=== PATIENT | male | born 1940 | race Caucasian/White ===

== ENCOUNTER 2020-10-30 22:21 | Emergency (ER) | payer MEDICARE, BC ==
[~2020-10-30] VITALS: Ht 180.3 cm; Wt 93.0 kg
--- NOTE | 2020-10-30 23:00 | NUR ---
BIBWIFE FROM HOME TO ER BED 6. AAOX4. NOT IN RESP DISTRESS, BREATHING EVEN AND UNLABORED. AMBULATORY. CAME IN FOR FEELING FATIGUED D/T FRONTAL HEAD TRAUMA S/P TRIPPED AND FELL ON THE SIDE WALK. PT IS ON ASPIRIN. NO NEURO DEFIT NOTED. WAS AT THE BEDSIDE FOR EVAL. ORDERS RECEIVED, NOTED AND CARRIED OUT. PT TO CT IN [facility]
--- NOTE | 2020-10-30 23:10 | NUR ---
PT RETURNED FROM CT
[2020-10-30 23:53] VITALS: BP 139/70
--- NOTE | 2020-10-30 23:53 | NUR ---
Patient discharged to home in stable condition. Written and verbal after care instructions given. Patient verbalizes understanding of instruction.
== END 2020-10-30 23:54 | disposition home or self-care (01) ==
LOC: ER 22:35
DX: S09.8XXA Other specified injuries of head, initial encounter (principal); R51.9 Headache, unspecified; E11.9 Type 2 diabetes mellitus without complications; I10 Essential (primary) hypertension; E78.00 Pure hypercholesterolemia, unspecified; E78.5 Hyperlipidemia, unspecified; Z79.82 Long term (current) use of aspirin; Z88.5 Allergy status to narcotic agent; W01.198A Fall on same level from slipping, tripping and stumbling with subsequent striking against other object, initial encounter; Y93.89 Activity, other specified; Y92.89 Other specified places as the place of occurrence of the external cause; Y99.8 Other external cause status
CPT/HCPCS: 70450-TC

== ENCOUNTER 2021-09-09 16:42 | Inpatient (IN) | payer MEDICARE, BC ==
[~2021-09-09] VITALS: Ht 181.6 cm; Wt 84.8 kg
--- NOTE | 2021-09-09 16:46 | NUR ---
PT IVONNE FROM HOME, AAOX4 STATES WAS HAVING CHEST PAIN YESTERDAY THAT HE TOOK NITRO AND RESOLVES. THIS MORNING STARTED HAVING CHEST PAIN AGAIN AND DID RESOLVE ON ITS OWN. PT CAME IN CHEST PAIN FREE. 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 GOWNED AND PLACED ON MONITOR. AWAITING MD CALIX.
--- NOTE | 2021-09-09 16:50 | NUR ---
DR IBRAHIM AT BEDSIDE FOR EVAL.
[2021-09-09] MEDS ORDERED: DAPA10TA PO (17:06)
[2021-09-09] MEDS ORDERED: RANO10005 PO (17:06)
[2021-09-09] MEDS ORDERED: LOSA1TAB36 PO (17:06)
[2021-09-09] MEDS ORDERED: LAMO200T10 PO (17:06)
[2021-09-09] MEDS ORDERED: ESOM40CA52 PO (17:06)
[2021-09-09] MEDS ORDERED: RISP0.2515 PO (17:06)
[2021-09-09] MEDS ORDERED: MYRBETRIQ PO (17:06)
--- NOTE | 2021-09-09 17:22 | NUR ---
PT REFUSING IV START AT THIS TIME STATES DEHYDRATED AND WOULD LIKE WATER AND 15 MINUTES BEFORE IV START.
--- NOTE | 2021-09-09 17:43 | NUR ---
IV LINE STARTED BLOOD DRAWN AND SENT TO LAB.
--- NOTE | 2021-09-09 17:46 | NUR ---
RADIOLOGY AT BEDSIDE FOR CHEST XRAY.
[2021-09-09] MEDS ORDERED: METO25TA4 PO (18:11)
[2021-09-09] MEDS ORDERED: AMLO10TA4 PO (18:11)
[2021-09-09] MEDS ORDERED: GABA600T PO (18:11)
[2021-09-09] MEDS ORDERED: ATOR80TA PO (18:11)
[2021-09-09] MEDS ORDERED: MEMA10TA PO (18:11)
[2021-09-09] MEDS ORDERED: FERR325T23 PO (18:11)
[2021-09-09] MEDS ORDERED: METF-442 PO (18:11)
[2021-09-09] MEDS ORDERED: QUET25TA PO (18:11)
[2021-09-09] MEDS ORDERED: ASPI-1169 PO (18:11)
[2021-09-09 18:19] LABS: BASOPHILS % (AUTO) 0.5 % (0.0-2.0); EOSINOPHILS % (AUTO) 2.7 % (0.0-6.0); HEMATOCRIT 45 % (39-51); HEMOGLOBIN 15.2 g/dL (13.5-17.5); LYMPHOCYTES # (AUTO) 1.7 K/uL (0.8-4.8); LYMPHOCYTES % (AUTO) 28.5 % (20.0-44.0); MEAN CORPUSCULAR HGB CONC 34 g/dl (31.0-36.0); MEAN CORPUSCULAR VOLUME 94 fL (80-96); MONOCYTES # (AUTO) 0.5 K/uL (0.1-1.30); MONOCYTES % (AUTO) 8.8 % (2.0-12.0); NEUTROPHILS # (AUTO) 3.4 K/uL (1.8-8.9); NEUTROPHILS % (AUTO) 59.5 % (43.0-81.0); PLATELET COUNT (AUTO) 231 K/uL (150-450); WHITE BLOOD COUNT (AUTO) 5.8 K/uL (4.3-11.0)
--- NOTE | 2021-09-09 19:16 | NUR ---
REPORT GIVEN TO PATY DE LEON FOR PHILIP.
--- NOTE | 2021-09-09 20:31 | NUR ---
BED 314-1
[2021-09-09 20:40] LABS: CALCIUM, SERUM 9.6 mg/dL (8.5-10.1); CARBON DIOXIDE 27 mmol/L (21-32); CHLORIDE 100 mmol/L (98-107); CREATININE 1.3 mg/dL (0.6-1.3); GLUCOSE 91 mg/dL (74-106); POTASSIUM 3.9 mmol/L (3.5-5.1); SODIUM SERUM 137 mmol/L (136-145); UREA NITROGEN, BLOOD 22 mg/dL (7-18)
[2021-09-09] MEDS ORDERED: ACETAMINOPHEN 325 MG TABLET PO PRN (21:00)
[2021-09-09] MEDS ORDERED: ONDANSETRON HCL/PF 4 MG/2 ML VIAL IVP PRN (21:00)
[2021-09-09] MEDS ORDERED: NITROGLYCERIN PACKET 1 GM PACKET TD PRN (21:00)
[2021-09-09] MEDS ORDERED: NITROGLYCERIN 0.4 MG/TAB BOTTLE SL PRN (21:00)
[2021-09-09] MEDS ORDERED: MORPHINE SULFATE INJ 2 MG/ML DISP.SYRIN IV PRN (21:00)
[2021-09-09] MEDS ORDERED: MAG HYDROX/AL HYDROX/SIMETH 30 ML UDC PO PRN (21:00)
[2021-09-09] MEDS ORDERED: DOCUSATE SODIUM 100 MG CAPSULE PO PRN (21:00)
--- NOTE | 2021-09-09 21:22 | NUR ---
US TECH AT PT'S BEDSIDE FOR ECHOCARDIOGRAM
--- NOTE | 2021-09-09 21:28 | NUR ---
REPORT GIVEN TO HALEY LAU
[2021-09-09 21:45] VITALS: BP 142/69
--- NOTE | 2021-09-09 21:45 | NUR ---
SUPERVISOR SECURITIES VAULT RECEIVING TRANSFER NOTE REPORT GIVEN TO ME BY [employer] FIRE SPECIALIST. PATIENT RECEIVED FROM ER BY CHARLES. A/OX4. NO S/S OF DISTRESS, BREATHING SYMMETRICALLY ON ROOM AIR. TELE MONITOR REVEALS SR 92. RFA #20G SL. SKIN INTACT. NO COMPLAINTS OF PAIN AT THIS TIME. PATIENT'S BELONGINGS ACCOUNTED FOR AND LOGGED INTO CHART. PATIENT WAS ORIENTED TO THE UNIT INCLUDING USE AND PURPOSE OF CALL-SIFUENTES. PATIENT'S VS STABLE: 142/69, HR 83, T 97.7, R 18. SAFETY MEASURES IN PLACE: BED AT LOWEST POSITION, RAILS UP X2, CALL SIFUENTES WITHIN REACH. WILL CONTINUE TO MONITOR PATIENT.
--- NOTE | 2021-09-09 21:47 | NUR ---
PT TRANSFERRED UNDER ACLS
[2021-09-09] MEDS ORDERED: risperiDONE 0.25 MG TABLET PO SCH (22:00)
--- NOTE | 2021-09-09 22:48 | NUR ---
RN NOTE PATIENT IS REFUSING TO TAKE ALL MEDS UNTIL HE CAN GET CLARIFICATION REGARDING ONE MEDICATION, HIS RISPERIDONE, FROM THE MD. I WILL BE CONTACTING THE ON-CALL TO FOLLOW-UP. WILL CONTINUE TO MONITOR.
--- NOTE | 2021-09-10 00:38 | NUR ---
RN NOTE PATIENT HAS BECOME PROGRESSIVELY UNRULY. HE CONTINUES TO ASK FOR HIS MEDS, BUT REFUSES TO TAKE THEM UNLESS THE MEDS ARE HE DESIRES THEM TO BE WHICH IS DIFFERENT FROM WHAT IS ORDERED. DR. BRIDGES, THE ON-CALL MD, WAS NOTIFIED. PER DR. BRIDGES PATIENT NEEDS TO WAIT UNTIL THE MORNING TO DISCUSS WITH HIS ATTENDING MD (DR. DARBY) AND THE PHARMACY TO RECONCILE THE ISSUE. PATIENT'S MEDICATIONS WERE ALREADY RECONCILED PRIOR TO ARRIVAL ON UNIT, 3W. CHARGE NURSE MADE AWARE OF THE ENTIRE SITUATION. I HAVE REINFORCED TO PATIENT THE SCOPE AND PRACTICE OF MY BEING AN RN OPPOSED TO BEING AN MD, BUT THE PATIENT STILL REQUESTS THAT I GIVE HIM HIS MEDS HE SO DESIRES. I HAVE ALSO TRIED REASONING WITH THE PATIENT THAT HE CAN STILL TAKE THE EVENING MEDS HE DOES AGREE WITH, BUT EVEN IN VERBALIZING HIS WANTING TO TAKE THOSE MEDS HE REFUSES BECAUSE ALL HIS MEDS NEED TO BE GIVEN TO HIM AT ONCE. HE TOLD ME HE WANTED THE "FUCKING DOCTOR RIGHT NOW!" AND STATED THAT WE "DON'T WANT TO SEE [HIM] TURN BIPOLAR"
[2021-09-10 00:46] VITALS: BP 148/88
[2021-09-10] MEDS ORDERED: DEXTROSE 50%-WATER 50 ML DISP.SYRIN IV PRN (01:30)
[2021-09-10] MEDS ORDERED: INSULIN REGULAR, HUMAN 100 UNIT/ML 3 ML VIAL SQ PRN (01:30)
[2021-09-10] MEDS ORDERED: risperiDONE 0.25 MG TABLET PO ONE (02:00)
[2021-09-10] MEDS: QUETIAPINE FUMARATE 25 MG TABLET PO SCH ×2 (02:07→21:19)
[2021-09-10] MEDS: ATORVASTATIN 40 MG TABLET PO SCH ×2 (02:07→21:19)
[2021-09-10] MEDS: FERROUS SULFATE (325 MG) 325 MG/TAB TABLET PO SCH ×2 (02:07→21:20)
--- NOTE | 2021-09-10 02:17 | NUR ---
RN NOTE PATIENT MEDICATION ISSUES RESOLVED WITH DR. BRIDGES. PATIENT WAS THEREFORE ACCEPTING OF TAKING ALL HIS MEDS. THIS IS WHY THEY ARE LATE.
[2021-09-10 04:10] VITALS: BP 132/58
[2021-09-10 04:16] LABS: BASOPHILS # (AUTO) 0.1 K/uL (0.0-0.2); BASOPHILS % (AUTO) 0.8 % (0.0-2.0); EOSINOPHILS % (AUTO) 2.1 % (0.0-6.0); HEMATOCRIT 43 % (39-51); HEMOGLOBIN 14.6 g/dL (13.5-17.5); LYMPHOCYTES # (AUTO) 1.8 K/uL (0.8-4.8); LYMPHOCYTES % (AUTO) 27.6 % (20.0-44.0); MEAN CORPUSCULAR HGB CONC 34 g/dl (31.0-36.0); MEAN CORPUSCULAR VOLUME 93 fL (80-96); MONOCYTES # (AUTO) 0.6 K/uL (0.1-1.30); MONOCYTES % (AUTO) 8.7 % (2.0-12.0); NEUTROPHILS % (AUTO) 60.8 % (43.0-81.0); PLATELET COUNT (AUTO) 227 K/uL (150-450); RED BLOOD CELL COUNT(AUTO) 4.65 MIL/uL (4.5-6.0); WHITE BLOOD COUNT (AUTO) 6.6 K/uL (4.3-11.0)
[2021-09-10 04:27] LABS: ALBUMIN 3.8 g/dL (3.4-5.0); BILIRUBIN,TOTAL 0.4 mg/dL (0.2-1.0); CALCIUM, SERUM 9.3 mg/dL (8.5-10.1); CREATININE 1.3 mg/dL (0.6-1.3); PHOSPHORUS 3.8 mg/dL (2.5-4.9); POTASSIUM 3.8 mmol/L (3.5-5.1); TOTAL PROTEIN, SERUM 6.6 g/dL (6.4-8.2)
[2021-09-10 04:48] LABS: THYROID STIMULATING HORMONE 2.402 uIU/mL (0.358-3.74)
--- NOTE | 2021-09-10 06:31 | NUR ---
[facility] SHIFT LEAD CLOSING NOTE PATIENT ASLEEP IN BED. A/OX4. NO S/S OF DISTRESS, BREATHING SYMMETRICAL ON ROOM AIR. RFA #20 INTACT AND PATENT. TELE MONITOR REVEALS SR 76. NO PAIN NOTED AT THIS TIME. SAFETY MEASURES IN PLACE: BED AT LOWEST POSITION, RAILS UP X2, CALL SIFUENTES WITHIN REACH. WILL ENDORSE TO FOLLOWING SHIFT FOR PHILIP.
[2021-09-10] MEDS: BLOOD SUGAR DIAGNOSTIC 1 EACH STRIP IN SCH ×4 (06:33→21:52)
--- NOTE | 2021-09-10 07:21 | NUR ---
RESPIRATORY SUPPORT TECHNICIAN OPENING NOTE RECEIVED PATIENT ASLEEP IN BED BUT EASILY AROUSABLE. PATIENT IS A/OX4 BUT FORGETFUL AT TIMES. PATEINT IS ON ROOM AIR WITH NO S/S OF DISTRESS, WITH EQUAL AND UNLABORED BREATHING. RFA #20 INTACT AND PATENT. TELE MONITOR REVEALS SR 76. NO PAIN NOTED AT THIS TIME. SAFETY MEASURES IN PLACE: BED AT LOWEST POSITION, RAILS UP X2, CALL SIFUENTES WITHIN REACH. WILL CONTINUE TO MONITOR PATIENT.
[2021-09-10] MEDS: PANTOPRAZOLE 40 MG TABLET.DR PO SCH (08:43)
[2021-09-10] MEDS: risperiDONE 0.25 MG TABLET PO SCH (08:44)
[2021-09-10] MEDS: ASPIRIN 81 MG TAB.CHEW PO SCH (08:45)
[2021-09-10] MEDS: LOSARTAN/HCTZ 50-12.5MG/ 1 EA TABLET PO SCH (08:47)
[2021-09-10] MEDS: LamoTRIgine 100 MG TABLET PO SCH ×2 (08:48→17:34)
[2021-09-10] MEDS: MEMANTINE HCL 5 MG TABLET PO SCH ×2 (08:49→17:32)
[2021-09-10] MEDS: METOPROLOL SUCCINATE 25 MG TAB.SR.24H PO SCH (08:50)
[2021-09-10] MEDS: AMLODIPINE BESYLATE 10 MG TABLET PO SCH (08:50)
[2021-09-10] MEDS: RANOLAZINE 500 MG TAB.ER.12H PO SCH ×2 (08:51→17:34)
[2021-09-10] MEDS: ENOXAPARIN SODIUM 40 MG/0.4 ML DISP.SYRIN SQ SCH (08:57)
[2021-09-10] MEDS: METFORMIN 500 MG TABLET PO SCH ×2 (08:58→17:31)
[2021-09-10 09:01] VITALS: BP 123/70
[2021-09-10 13:09] VITALS: BP 142/72
--- NOTE | 2021-09-10 15:00 | NUR ---
THERAPIST SPEECH NOTE PATIENT ASKED TO BRING HOME MEDICATIONS CYNTHIA, PATIENT SAID HE WILL CALL HIS FAMILY TO BRING IT. WILL WAIT FOR THE MEDICATION.
[2021-09-10 16:44] VITALS: BP 142/74
--- NOTE | 2021-09-10 19:10 | NUR ---
CREDIT COLLECTION SPECIALIST CLOSING NOTE PATIENT IS A/OX4 BUT FORGETFUL AT TIMES. PATIENT IS ON ROOM AIR WITH NO S/S OF DISTRESS, WITH EQUAL AND UNLABORED BREATHING. RFA #20 INTACT AND PATENT. TELE MONITOR REVEALS SR 76. NO PAIN NOTED AT THIS TIME. SAFETY MEASURES IN PLACE: BED AT LOWEST POSITION, RAILS UP X2, CALL SIFUENTES WITHIN REACH. WILL ENDORSE TO NEXT SHIFT FOR CONTINUITY OF CARE.
--- NOTE | 2021-09-10 19:30 | NUR ---
CAGE CLERK OPENING NOTE RECEIVED PATIENT IN BED AWAKE. A/OX4. PATIENT STABLE ON ROOM AIR. NO SOB OR S/S OF RESPIRATORY DISTRESS. ON EXTERNAL DIRECTOR OF COMPENSATION READING SR. IV ACCESS RFA 20 GAUGE, INTACT AND PATENT. SAFETY PRECAUTIONS IN PLACE. BED IN LOWEST LOCKED POSITION, HOB ELEVATED, SIDE RAILS UP X2, AND CALL LIGHT AND TABLE WITHIN REACH. WILL CONTINUE WITH PLAN OF CARE.
[2021-09-10 20:00] VITALS: BP 144/70
[2021-09-10] MEDS ORDERED: GABAPENTIN 300 MG CAPSULE PO SCH (22:00)
[2021-09-10] MEDS ORDERED: risperiDONE 0.25 MG TABLET PO SCH (22:00)
[2021-09-11] VITALS: BP 152/76
[2021-09-11 06:13] VITALS: BP 149/82
--- NOTE | 2021-09-11 06:30 | NUR ---
RN NOTE PT REFUSED MORNING BLOOD SUGAR CHECK. EXPLAINED RISKS AND CONSEQUENCES TO REFUSING BLOOD SUGAR CHECK. PT STILL REFUSED. WILL ENDORSE TO ONCOMING NURSE FOR PHILIP.
--- NOTE | 2021-09-11 06:40 | NUR ---
MINCING MACHINE OPERATOR CLOSING NOTE PATIENT IN BED AWAKE. A/OX4. PATIENT STABLE ON ROOM AIR. NO SOB OR S/S OF RESPIRATORY DISTRESS. 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 IV ACCESS RFA 20 GAUGE, INTACT AND PATENT. ALL NEEDS MET AT THIS TIME. SAFETY PRECAUTIONS IN PLACE AT ALL TIMES. BED IN LOWEST LOCKED POSITION, HOB ELEVATED, SIDE RAILS UP X2, AND CALL LIGHT AND TABLE WITHIN REACH. WILL ENDORSE TO ONCOMING NURSE FOR PHILIP.
--- NOTE | 2021-09-11 07:20 | NUR ---
ms rn received on bed, awake,alert,oriented x4,not in any form of distress, respirations even and unlabored,no sob noted, lung are clear,abdomen soft, positive bowel sounds,denies pain at this time. will monitor patient.
[2021-09-11] MEDS: BLOOD SUGAR DIAGNOSTIC 1 EACH STRIP IN SCH ×2 (07:30→12:00)
--- NOTE | 2021-09-11 09:00 | NUR ---
ms rn breakfast served, due med refused, pt wants the list to be verified w/ md and rx.
--- NOTE | 2021-09-11 11:00 | NUR ---
ms rn list done, meds given to rx to give today's dose, refused accucheck at this time.
[2021-09-11] MEDS: LamoTRIgine 100 MG TABLET PO SCH (11:54)
[2021-09-11] MEDS: METFORMIN 500 MG TABLET PO SCH (11:54)
[2021-09-11] MEDS: RANOLAZINE 500 MG TAB.ER.12H PO SCH (11:54)
[2021-09-11] MEDS: ASPIRIN 81 MG TAB.CHEW PO SCH (11:55)
[2021-09-11] MEDS: MEMANTINE HCL 5 MG TABLET PO SCH (11:55)
[2021-09-11] MEDS: METOPROLOL SUCCINATE 25 MG TAB.SR.24H PO SCH (11:56)
[2021-09-11] MEDS: AMLODIPINE BESYLATE 10 MG TABLET PO SCH (11:56)
--- NOTE | 2021-09-11 12:00 | NUR ---
ms rn due meds given, accucheck refused again for 1200, denies pain at this time,all needs attended.
[2021-09-11 12:01] VITALS: BP 144/78
[2021-09-11] MEDS: risperiDONE 0.25 MG TABLET PO SCH (12:01)
[2021-09-11] MEDS: LOSARTAN/HCTZ 50-12.5MG/ 1 EA TABLET PO SCH (12:01)
[2021-09-11] MEDS: ENOXAPARIN SODIUM 40 MG/0.4 ML DISP.SYRIN SQ SCH (12:02)
[2021-09-11] MEDS: PANTOPRAZOLE 40 MG TABLET.DR PO SCH (12:03)
[2021-09-11] MEDS ORDERED: ISOSORBIDE MONONITRATE (30MG) 30 MG TAB.SR.24H PO SCH (14:30)
--- NOTE | 2021-09-11 14:35 | NUR ---
ms rn all need attended, was seen by dr. turk w/ shaquille to d/c.
[2021-09-11] MEDS ORDERED: ISOS30TA86 PO (14:41)
--- NOTE | 2021-09-11 15:00 | NUR ---
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
[2021-09-12] MEDS ORDERED: MYRBETRIQ 50 MG PO SCH (09:00)
[2021-09-12] MEDS ORDERED: FARXIGA 10 MG PO SCH (14:00)
== END 2021-09-11 15:30 | disposition home or self-care (01) | DRG 303 ==
LOC: ER 17:06 → TELE 20:55
PROVIDERS: ADMIT Registered Nurse; ATTEND Student in an Organized Health Care Education/Training Program
DX: I25.110 Atherosclerotic heart disease of native coronary artery with unstable angina pectoris (principal); E78.5 Hyperlipidemia, unspecified; Z95.1 Presence of aortocoronary bypass graft; Z86.73 Personal history of transient ischemic attack (TIA), and cerebral infarction without residual deficits; Z88.5 Allergy status to narcotic agent; Z79.84 Long term (current) use of oral hypoglycemic drugs; Z79.82 Long term (current) use of aspirin; Z79.899 Other long term (current) drug therapy; F03.90 Unspecified dementia, unspecified severity, without behavioral disturbance, psychotic disturbance, mood disturbance, and anxiety; E11.22 Type 2 diabetes mellitus with diabetic chronic kidney disease; I12.9 Hypertensive chronic kidney disease with stage 1 through stage 4 chronic kidney disease, or unspecified chronic kidney disease; N18.9 Chronic kidney disease, unspecified; R79.89 Other specified abnormal findings of blood chemistry
CPT/HCPCS: 36415; 71045-TC; 80048-TC; 80053-TC; 80061-TC; 82962-TC; 83690-TC; 83880; 84100-TC; 84443-TC; 84484-TC; 85025-TC; 87081-TC; 93307-TC; C9803; G0378; J1650; J1815

== ENCOUNTER 2024-05-05 18:07 | Emergency (ER) | payer MEDICARE, BC ==
[~2024-05-05] VITALS: Ht 182.9 cm; Wt 82.6 kg
[~2024-05-05 18:07] MED LIST: AMLO10TA4 PO; ASPI-1169 PO; ATOR80TA PO; DAPA10TA PO; ESOM40CA52 PO; FERR325T23 PO; GABA600T PO; ISOS30TA86 PO; LAMO200T10 PO; LOSA1TAB36 PO; MEMA10TA PO; METF-442 PO; METO25TA4 PO; MYRBETRIQ PO; QUET25TA PO; RANO10005 PO; RISP0.2515 PO
[2024-05-05 19:14] LABS: BASOPHILS # (AUTO) 0.1 K/uL (0.0-0.2); BASOPHILS % (AUTO) 0.7 % (0.0-2.0); EOSINOPHILS # (AUTO) 0.1 K/uL (0.0-0.7); EOSINOPHILS % (AUTO) 1.1 % (0.0-6.0); HEMATOCRIT 47 % (39-51); LYMPHOCYTES # (AUTO) 1.7 K/uL (0.8-4.8); LYMPHOCYTES % (AUTO) 22.1 % (20.0-44.0); MEAN CORPUSCULAR HEMOGLOBIN 31 PG (26.0-33.0); MEAN CORPUSCULAR HGB CONC 34 g/dl (31.0-36.0); MEAN CORPUSCULAR VOLUME 92 fL (80-96); MONOCYTES # (AUTO) 0.6 K/uL (0.1-1.30); MONOCYTES % (AUTO) 7.8 % (2.0-12.0); NEUTROPHILS # (AUTO) 5.3 K/uL (1.8-8.9); NEUTROPHILS % (AUTO) 68.3 % (43.0-81.0); PLATELET COUNT (AUTO) 247 K/uL (150-450); RED BLOOD CELL COUNT(AUTO) 5.14 MIL/uL (4.5-6.0); RED CELL DISTRIBUTION WIDTH 14.2 % (11.5-15.0); WHITE BLOOD COUNT (AUTO) 7.8 K/uL (4.3-11.0)
[2024-05-05 19:32] LABS: CALCIUM, SERUM 9.3 mg/dL (8.5-10.1); CARBON DIOXIDE 30 mmol/L (21-32); CHLORIDE 100 mmol/L (98-107); GLUCOSE 183 mg/dL (74-106); POTASSIUM 4.1 mmol/L (3.5-5.1); SODIUM SERUM 138 mmol/L (136-145); UREA NITROGEN, BLOOD 14 mg/dL (7-18)
[2024-05-05 20:02] VITALS: BP 164/88; TEMP 97.9; O2SAT 97
== END 2024-05-05 20:03 | disposition home or self-care (01) ==
LOC: ER 18:12
DX: R53.1 Weakness (principal); I10 Essential (primary) hypertension; E11.65 Type 2 diabetes mellitus with hyperglycemia; Z79.82 Long term (current) use of aspirin; Z88.5 Allergy status to narcotic agent; Z95.1 Presence of aortocoronary bypass graft
CPT/HCPCS: 36415; 80048-TC; 85025-TC